=== PATIENT | female | born 1985 | race Caucasian/White ===

== ENCOUNTER 2023-10-13 07:30 | Emergency (ER) | payer OTHER, BC ==
[2023-10-13] MEDS: Take Home: Cyclobenzaprine 10 MG Tab, 4 Tab Pack PO ONE (08:39)
[2023-10-13] MEDS: Take Home: predniSONE 20 MG, 2 Tab Pack PO ONE (08:40)
[2023-10-13] MEDS: Ketorolac 30 MG/ML SDV IM ONE (08:41)
[2023-10-13] MEDS: Orphenadrine 60 MG/2 ML Inj IM ONE (08:41)
[2023-10-13] MEDS ORDERED: Take Home: Cyclobenzaprine 10 MG Tab, 4 Tab Pack ONE (08:42)
== END 2023-10-13 09:05 | disposition home or self-care (01) ==
LOC: CC.ED 07:30
DX: M25.551 Pain in right hip (principal); F17.210 Nicotine dependence, cigarettes, uncomplicated; Z79.899 Other long term (current) drug therapy
CPT/HCPCS: 72100; 96372; 99284; A9270-GY; J1885; J2360; J7512